=== PATIENT | male | born 1995 | race Caucasian/White ===

== ENCOUNTER 2017-02-07 08:44 | Emergency (ER) | payer OTHER ==
[~2017-02-07] VITALS: Ht 170.2 cm; Wt 81.8 kg
[2017-02-07] MEDS ORDERED: IBUPROFEN 600 MG TABLET PO ONE (10:00)
[2017-02-07] MEDS ORDERED: PERTUSS(ACELL),DIPH,TET VAC/PF 0.5 ML VIAL IM ONE (10:15)
[2017-02-07] MEDS ORDERED: LIDOCAINE HCL 1% 10 ML VIAL INJ ONE (10:45)
[2017-02-07 11:05] VITALS: BP 128/92
== END 2017-02-07 12:51 | disposition home or self-care (01) ==
LOC: EMS 08:46
DX: S61.412A Laceration without foreign body of left hand, initial encounter (principal); W25.XXXA Contact with sharp glass, initial encounter; Y93.89 Activity, other specified; Y92.89 Other specified places as the place of occurrence of the external cause; Y99.9 Unspecified external cause status
CPT/HCPCS: 12001; 73130; 90471; 90715; 99284; J3490

== ENCOUNTER 2020-04-08 16:01 | Emergency (ER) | payer MEDICAID, OTHER ==
[~2020-04-08] VITALS: Ht 170.2 cm; Wt 77.3 kg
[2020-04-08] MEDS ORDERED: PROPARACAINE HCL 0.5% 15 ML OPHTHALMIC SOLUTION OS ONE (16:30)
[2020-04-08] MEDS ORDERED: ACETAMINOPHEN 500 MG TABLET PO ONE (16:30)
[2020-04-08] MEDS ORDERED: FLUORESCEIN SODIUM 1 MG STRIP ONE (16:44)
[2020-04-08] MEDS ORDERED: OFLOXACIN 0.3% 5 ML OPHTHALMIC SOLUTION OS ONE (17:15)
[2020-04-08 17:32] VITALS: BP 120/71
== END 2020-04-08 17:30 | disposition home or self-care (01) ==
LOC: EMS 16:01
DX: H57.12 Ocular pain, left eye (principal)

== ENCOUNTER 2020-06-17 17:23 | Emergency (ER) | payer MEDICAID ==
[~2020-06-17] VITALS: Ht 165.1 cm; Wt 70.5 kg
[2020-06-17 19:40] VITALS: BP 133/64
== END 2020-06-17 20:37 | disposition home or self-care (01) ==
LOC: EMS 17:23
DX: B86 Scabies (principal)
CPT/HCPCS: 99282; Z7502